=== PATIENT | female | born 1980 | race Caucasian/White ===

== ENCOUNTER 2020-04-22 10:23 | Outpatient (CLI) | payer OTHER, SELFPAY ==
--- NOTE | ~2020-04-22 | US_ITS ---
EXAMINATION: US OB follow up DATE: 04/22/2020 11:22 INDICATION: Encounter for supervision of normal during third trimester TECHNIQUE: Real-time ultrasound of the pelvis was performed. The interpreting radiologist was not pre sent for the study. COMPARISON: None. FINDINGS: There is a single living fetus in vertex presentation. The placenta is posterior fundal. heart rate is 137 beats per minute (bpm). The amniotic fluid index is 14.3 cm, which is normal (5th%-95%: 9.0-23.4 cm at 30 weeks estimated gestational age). The following biometric data were obtained: BPD: 7.4 cm -> 29 weeks 5 days Head circumference: 27.4 cm -> 29 weeks 6 days Abdominal circumference: 27.0 cm -> 31 weeks 0 days Femur length: 6.0 cm -> 31 weeks 0 days These measurements are concordant. Head circumference to abdominal circumference ratio: 1.02 (normal range 0.97-1.18). Estimated weight: 1646 g (+/-) 247 g. or 3 lbs. 10 oz. (+/-) 9 oz. IMPRESSION: 1. Single living fetus in vertex presentation with heart rate of 137 bpm. 2. Gestational age by ultrasound of 30 weeks 3 day(s) +/- 2 week(s) 1 day(s) with ultrasound estimate d date of delivery (FELIZ) of 06/28/2020. Estimated weight is 41st percentile by Hadlock criteria w hen 06/26/2020 is used as the FELIZ. Please correlate with clinical information or earlier ultrasounds fo r most accurate FELIZ. 3. Normal amniotic fluid index of 14.3 cm. Reviewed, dictated and finalized at location B. X SYSTEMS ADMINISTRATOR IMPRESSION: 1. Single living fetus in vertex presentation with heart rate of 137 bpm. 2. Gestational age by ultrasound of 30 weeks 3 day(s) +/- 2 week(s) 1 day(s) wi th ultrasound estimated date of delivery (FELIZ) of 06/28/2020. Estimated tomer ght is 41st percentile by Hadlock criteria when 06/26/2020 is used as the FELIZ. Pl ease correlate with clinical information or earlier ultrasounds for most accura te FELIZ. 3. Normal amniotic fluid index of 14.3 cm.
== END 2020-04-22 10:24 | disposition home or self-care (01) ==
PROVIDERS: PCP Physician Assistant; Visit Provider Obstetrics & Gynecology
DX: Z34.90 Encounter for supervision of normal pregnancy, unspecified, unspecified trimester (principal); Z3A.30 30 weeks gestation of pregnancy
CPT/HCPCS: 76816

== ENCOUNTER 2020-05-22 12:19 | Outpatient (RCR) | payer OTHER, SELFPAY ==
[2020-05-01 14:27] VITALS: BP 120/71; PULSE 90
[2020-05-15 15:29] VITALS: BP 133/76; PULSE 104
--- NOTE | ~2020-05-22 | US_ITS ---
EXAMINATION: US OB follow up w BPP DATE: 05/15/2020 14:56 INDICATION: Gestational diabetes. History of febrile loss. TECHNIQUE: Real-time ultrasound of the pelvis was performed. The interpreting radiologist was not pre sent for the study. COMPARISON: Comparison to multiple prior studies sequentially, with oldest reviewed study dated 02/2020. FINDINGS: There is a single living fetus in vertex presentation. The placenta is fundal. cardiac activit y and movement are noted. heart rate is 131 beats per minute (bpm). The amniotic fluid in dex is 13.3 cm, which is normal. The following biometric data were obtained: BPD: 8.2 cm corresponds to gestational age 32 weeks 6 day(s). Head circumference: 31.1 cm corresponds to gestational age 34 weeks 6 day(s). Abdominal circumference: 30.8 cm corresponds to gestational age 34 weeks 5 day(s). Femur length: 6.5 cm corresponds to gestational age weeks day(s). Head circumference to abdominal circumference ratio: 1.01 Estimated weight: 2369 g plus or minus 355 g. Biophysical profile performed by the technologist: breathing (30 sec sustained breathing in 30 minutes): 0 out of 2 movement (3 gross body movements in 30 minutes: 2 out of 2 tone (one episode of adjmnut-hwxozkggg-yfiyfyt limb movement): 2 out of 2 Amniotic fluid pocket (2 cm): 2 out of 2 Total score: 6 out of 8 IMPRESSION: 1. Single living fetus in vertex presentation with heart rate of 131 bpm. 2. Normal placenta. 3. Biophysical profile 6 out of 8. 4. Gestational age by ultrasound of 34 weeks 0 day(s) with ultrasound estimated date of delivery (FELIZ ) of 06/26/2020. Appropriate interval growth. Reviewed, dictated and finalized at location A. IMPRESSION: 1. Single living fetus in vertex presentation with heart rate of 131 bpm. 2. Normal placenta. 3. Biophysical profile 6 out of 8. 4. Gestational age by ultrasound of 34 weeks 0 day(s) with ultrasound estimated date of delivery (FELIZ) of 06/26/2020. Appropriate interval growth.
--- NOTE | ~2020-05-22 | US_ITS ---
EXAMINATION: US OB limited w BPP DATE: 05/22/2020 13:46 INDICATION: Gestational diabetes, third trimester TECHNIQUE: Real-time pelvic ultrasound was performed. The interpreting radiologist was not present fo r the study. COMPARISON: 05/15/2020 FINDINGS: There is a single living fetus in vertex presentation. The placenta is fundal. heart rate is 14 2 beats per minute (bpm). The amniotic fluid index is 15.4 cm which is normal. Biophysical profile performed by the technologist: breathing (30 sec sustained breathing in 30 minutes): 2 out of 2 movement (3 gross body movements in 30 minutes): 2 out of 2 tone (one episode of qfbcrco-khlcwsdoy-vxhmrmp limb movement): 2 out of 2 Amniotic fluid pocket (2 cm): 2 out of 2 Total score: 8 out of 8 IMPRESSION: 1. Single living fetus in vertex presentation. 2. Biophysical profile 8 out of 8. 3. Normal amniotic fluid index. Reviewed, dictated and finalized at location A.
--- NOTE | ~2020-05-22 | US_ITS ---
EXAMINATION: US OB follow up w BPP DATE: 05/01/2020 13:57 INDICATION: Advanced maternal age, third trimester TECHNIQUE: Real-time ultrasound of the pelvis was performed. COMPARISON: 04/22/2020 FINDINGS: There is a single living fetus in breech presentation. The placenta is fundal. heart rate is 14 1 beats per minute (bpm). cardiac activity and movement are noted. The amniotic fluid in dex is 10.5 cm which is normal. Biophysical profile performed by the technologist: breathing (30 sec sustained breathing in 30 minutes): 2 out of 2 movement (3 gross body movements in 30 minutes): 2 out of 2 tone (one episode of lzysfjt-curciicfk-kigfgtt limb movement): 2 out of 2 Amniotic fluid pocket (2 cm): 2 out of 2 Total score: 8 out of 8 The following biometric data were obtained: Biparietal diameter (BPD): 7.6 cm; head circumference (HC): 28.9 cm; abdominal circumference (AC): 29 .8 cm; femur length (FL): 6.1 cm. These measurements are concordant. Estimated weight is 2038 g +/- 305 g, which correlates with the 64th percentile when 06/26/2020 i s used as estimated date of delivery. As single measurements, these parameters are each equal to the following estimated gestational ages w ith ranges of +/- 2 standard deviations: BPD: 30 weeks 5 days +/- 3 weeks 1 days. HC: 31 weeks 6 days +/- 3 weeks 0 days. AC: 33 weeks 6 days +/- 3 weeks 0 days. FL: 31 weeks 5 days +/- 3 weeks 0 days. estimated gestational age based solely on measurements from this exam is 32 weeks 0 days +/- 2 weeks 2 days. IMPRESSION: 1. Single living fetus in breech presentation. 2. Estimated weight is 2038 g +/- 305 g, which correlates with the 64th percentile when is used as estimated date of delivery. 3. Biophysical profile 8 out of 8. Reviewed, dictated and finalized at location A. GE HAND IMPRESSION: 1. Single living fetus in breech presentation. 2. Estimated weight is 2038 g +/- 305 g, which correlates with the 64th p ercentile when 06/26/2020 is used as estimated date of delivery. 3. Biophysical profile 8 out of 8.
[2020-05-22 14:05] VITALS: BP 123/69; PULSE 87
== END 2020-07-30 23:59 | disposition home or self-care (01) ==
LOC: ANHOBOP 12:19
PROVIDERS: PCP Physician Assistant; Visit Provider Obstetrics & Gynecology
DX: O09.513 Supervision of elderly primigravida, third trimester (principal); Z3A.32 32 weeks gestation of pregnancy; O24.419 Gestational diabetes mellitus in pregnancy, unspecified control; O26.23 Pregnancy care for patient with recurrent pregnancy loss, third trimester; Z3A.34 34 weeks gestation of pregnancy; Z3A.35 35 weeks gestation of pregnancy
CPT/HCPCS: 59025; 76815; 76816; 76819